=== PATIENT | male | born 1960 | race Caucasian/White ===

== ENCOUNTER 2022-07-07 20:53 | Inpatient (IN) | payer OTHER ==
[~2022-07-07] VITALS: Ht 182.9 cm; Wt 79.4 kg
[2022-07-07 21:09] VITALS: BP_SYST 123
[2022-07-07 21:45] LABS: BASOPHILS # (AUTO) 0.1 K/uL (0.0-0.2); BASOPHILS % (AUTO) 1.2 % (0.0-2.0); EOSINOPHILS # (AUTO) 0.1 K/uL (0.0-0.4); HEMATOCRIT 43.4 % (36-54); HEMOGLOBIN 14.4 g/dL (14.0-18.0); LYMPHOCYTES # (AUTO) 1.4 K/uL (1.0-5.5); LYMPHOCYTES % (AUTO) 21.5 % (20.5-51.5); MEAN CORPUSCULAR HEMOGLOBIN 26 pg (27-31); MEAN CORPUSCULAR HGB CONC 33 % (32-36); MEAN CORPUSCULAR VOLUME 79 fL (79.0-98.0); MONOCYTES # (AUTO) 0.6 K/uL (0.0-1.0); MONOCYTES % (AUTO) 8.8 % (1.7-9.3); NEUTROPHILS # (AUTO) 4.2 K/uL (1.8-7.7); NEUTROPHILS % (AUTO) 66.5 % (40.0-70.0); PLATELET COUNT (AUTO) 189 K/uL (130-430); RED BLOOD CELL COUNT(AUTO) 5.51 MIL/uL (4.2-6.2); RED CELL DISTRIBUTION WIDTH 14.1 % (9.0-15.0); WHITE BLOOD COUNT (AUTO) 6.3 K/uL (4.8-10.8)
[2022-07-07 21:57] LABS: ANION GAP 5 (5-15); CALCIUM 9.3 mg/dL (8.4-11.0); CHLORIDE 104 mmol/L (98-107); CREATININE 1.22 mg/dL (0.55-1.30); GLUCOSE 113 mg/dL (70-99); POTASSIUM 3.7 mmol/L (3.5-5.1); SODIUM SERUM 140 mmol/L (136-145); UREA NITROGEN, BLOOD 27 mg/dL (8-21)
[2022-07-07 22:09] LABS: ALANINE AMINOTRANSFERASE 12 U/L (12-78); ALBUMIN 3.7 g/dL (3.4-4.8); ASPARTATE AMINOTRANSFERASE 20 U/L (10-37); TOTAL BILIRUBIN 0.8 mg/dL (0.0-1.0)
[2022-07-07 22:34] LABS: GFR AFRICAN AMERICAN 78 mL/min (>90)
[2022-07-07] MEDS ORDERED: dilTIAZem HCL IVP 5 MG/ML VIAL ONE (23:45)
[2022-07-07] MEDS ORDERED: dilTIAZem HCL IVP 5 MG/ML VIAL IVP ONE (23:45)
[2022-07-08] MEDS ORDERED: ASPIRIN 325 MG TABLET PO ONE (00:15)
[2022-07-08] MEDS ORDERED: dilTIAZem HCL IVP 5 MG/ML VIAL IVP ONE (00:15)
[2022-07-08] MEDS ORDERED: NS 500 ML IV ONE ×2 (00:30→03:15)
[2022-07-08] MEDS ORDERED: MAGNESIUM SULFATE 50 ML IV ONE (03:45)
[2022-07-08] MEDS ORDERED: POTASSIUM CHLORIDE 20 MEQ TAB.PRT.SR PO ONE (03:45)
[2022-07-08 06:40] LABS: BASOPHILS # (AUTO) 0.1 K/uL (0.0-0.2); BASOPHILS % (AUTO) 1.2 % (0.0-2.0); EOSINOPHILS # (AUTO) 0.1 K/uL (0.0-0.4); EOSINOPHILS % (AUTO) 3.1 % (0.0-4.0); HEMATOCRIT 39.4 % (36-54); HEMOGLOBIN 13.2 g/dL (14.0-18.0); LYMPHOCYTES # (AUTO) 1.1 K/uL (1.0-5.5); LYMPHOCYTES % (AUTO) 22.9 % (20.5-51.5); MEAN CORPUSCULAR HEMOGLOBIN 26 pg (27-31); MEAN CORPUSCULAR HGB CONC 34 % (32-36); MEAN CORPUSCULAR VOLUME 79 fL (79.0-98.0); MONOCYTES # (AUTO) 0.4 K/uL (0.0-1.0); MONOCYTES % (AUTO) 8.8 % (1.7-9.3); PLATELET COUNT (AUTO) 152 K/uL (130-430); WHITE BLOOD COUNT (AUTO) 4.7 K/uL (4.8-10.8)
[2022-07-08 07:36] LABS: ALBUMIN 3.1 g/dL (3.4-4.8); CALCIUM 8.5 mg/dL (8.4-11.0); CREATININE 0.97 mg/dL (0.55-1.30); POTASSIUM 4.4 mmol/L (3.5-5.1); TOTAL BILIRUBIN 0.5 mg/dL (0.0-1.0)
[2022-07-08] MEDS ORDERED: DILTIAZEM HCL 120 MG CAP.SR.24H PO SCH (09:00)
[2022-07-08] MEDS ORDERED: ENOXAPARIN SODIUM 40 MG/0.4 ML SYRINGE SUBCUT SCH (09:00)
[2022-07-08] MEDS ORDERED: DILT180C67 PO ×2 (09:12→09:23)
[2022-07-08 09:50] VITALS: BP_SYST 114
[2022-07-08] MEDS ORDERED: AMIODARONE HCL 200 MG TABLET PO ONE (11:00)
[2022-07-08 11:07] LABS: FREE T4 (FREE THYROXINE) 0.9 ng/dl (0.8-1.5); THYROID STIMULATING HORMONE 0.89 uIu/mL (0.36-3.74)
[2022-07-08] MEDS ORDERED: APIXABAN 2.5 MG TABLET PO ONE (11:15)
[2022-07-08 12:00] VITALS: BP_SYST 119
[2022-07-08 16:00] VITALS: BP_SYST 119
[2022-07-08 19:46] LABS: THYROID STIMULATING HORMONE 0.83 uIu/mL (0.36-3.74)
[2022-07-08 20:00] VITALS: BP_SYST 110
[2022-07-08] MEDS: APIXABAN 2.5 MG TABLET PO SCH (21:25)
[2022-07-08] MEDS: AMIODARONE HCL 200 MG TABLET PO SCH (21:32)
[2022-07-08] MEDS: NORMAL SALINE 5 ML DISP.SYRIN IVF SCH (21:33)
[2022-07-09] VITALS: BP_SYST 112
[2022-07-09 06:22] LABS: CHOLESTEROL 188 mg/dL (<200); TRIGLYCERIDES 119 mg/dL (30-150)
[2022-07-09 06:23] LABS: HDL CHOLESTEROL 49 mg/dL (>45); LDL CHOLESTEROL 118 mg/dL (<100)
[2022-07-09 07:48] VITALS: BP_SYST 119
[2022-07-09] MEDS: APIXABAN 2.5 MG TABLET PO SCH (10:09)
[2022-07-09] MEDS: AMIODARONE HCL 200 MG TABLET PO SCH (10:15)
[2022-07-09] MEDS ORDERED: METOPROLOL SUCCINATE 25 MG TAB.SR.24H (TOPROL XL) PO ONE (11:00)
[2022-07-09 12:00] VITALS: BP_SYST 132
[2022-07-09] MEDS: NORMAL SALINE 5 ML DISP.SYRIN IVF SCH (13:38)
[2022-07-09] MEDS ORDERED: METO25TA6 PO (13:58)
[2022-07-09] MEDS ORDERED: METO25TA3 PO (14:02)
[2022-07-09] MEDS ORDERED: APIX5TAB4 PO (14:02)
[2022-07-09] MEDS ORDERED: AMIO200T66 PO (14:06)
[2022-07-09 14:20] VITALS: BP_SYST 132
[2022-07-09] MEDS ORDERED: AMIODARONE HCL 200 MG TABLET PO SCH (21:00)
[2022-07-10] MEDS ORDERED: METOPROLOL SUCCINATE 25 MG TAB.SR.24H (TOPROL XL) PO SCH (09:00)
== END 2022-07-09 14:45 | disposition home or self-care (01) | DRG 310 ==
LOC: SED 20:53 → STU 07-08 09:22
PROVIDERS: ADMIT Internal Medicine; ATTEND Internal Medicine
DX: I48.91 Unspecified atrial fibrillation (principal); I48.92 Unspecified atrial flutter; R07.89 Other chest pain; Z20.822 Contact with and (suspected) exposure to COVID-19; Z79.01 Long term (current) use of anticoagulants
CPT/HCPCS: 36415; 71045; 80053; 80061; 83735; 83880; 84439; 84443; 84484; 85025; 85379; 93005; 93306; 96365; 96366; 96375; 99285; G0378; J1650; J3475; J3490